=== PATIENT | male | born 1985 | race African-American/Black ===

== ENCOUNTER 2016-12-06 19:30 | Emergency (ER) | payer SELFPAY ==
[~2016-12-06] VITALS: Ht 180.3 cm; Wt 88.5 kg
[2016-12-06 19:46] VITALS: BP 128/77
--- NOTE | 2016-12-06 20:03 | PHYS DOC ---
Past Medical History Past Medical History: No Pertinent History Past Surgical History: No Surgical History Alcohol Use: Occasionally Drug Use: Cocaine, Marijuana Adult General Chief Complaint Chief Complaint: LOWEREXTREMITY INJURY HPI HPI Patient is a 31 year old male presents emergency department stating that he was seen at [facility] on November 24 for dislocated right ankle. He states that he was supposed to follow-up with orthopedic in which she states he has an appointment on Thursday. Patient does have a splint applied to the right ankle. He states today he went to get up and fell over his crutches. He states that he has having increased pain in the right ankle area. He states that he has lost his prescriptions for pain medication has been using cocaine to relieve the pain. He states last time he used was 2 days ago. Patient denies any numbness or tingling into the toes. He has good sensation peripheral pulses 2+. Review of Systems Review of Systems Constitutional: Denies fever or chills [] Eyes: Denies change in visual acuity, redness, or eye pain [] HENT: Denies nasal congestion or sore throat [] Respiratory: Denies cough or shortness of breath [] Cardiovascular: No additional information not addressed in HPI [] GI: Denies abdominal pain, nausea, vomiting, bloody stools or diarrhea [] : Denies dysuria or hematuria [] Musculoskeletal: Denies back pain. Complaint of right ankle pain and discomfort. Integument: Denies rash or skin lesions [] Neurologic: Denies headache, focal weakness or sensory changes [] Endocrine: Denies polyuria or polydipsia [] Current Medications Current Medications Current Medications Medications (Trade) Dose Ordered Sig/Miracle Start Time Stop Time Status Last Admin Dose Admin Acetaminophen/ Hydrocodone Bitart (Lortab 5/325) 2 tab 1X ONCE 12/06/16 21:15 12/06/16 21:16 Allergies Allergies Allergies Coded Allergies Type Severity Reaction Last Updated Verified No Known Drug Allergies 12/06/16 No Physical Exam Physical Exam Constitutional: Well developed, well nourished, no acute distress, non-toxic appearance. [] HENT: Normocephalic, atraumatic, bilateral external ears normal, oropharynx moist, no oral exudates, nose normal. [] Eyes: PERRLA, EOMI, conjunctiva normal, no discharge. [] Neck: Normal range of motion, no tenderness, supple, no stridor. [] Cardiovascular:Heart rate regular rhythm, no murmur [] Lungs & Thorax: Bilateral breath sounds clear to auscultation [] Abdomen: Bowel sounds normal, soft, no tenderness, no masses, no pulsatile masses. [] Skin: Warm, dry, no erythema, no rash. [] Back: No tenderness Extremities: Right lateral ankle tenderness, no cyanosis, no clubbing, ROM intact, no edema. Patient with the splint in place at the current time. Peripheral pulses 2+ cap refill brisk less than 2 seconds good sensation noted to the toes cap refill brisk less than 2 seconds. Neurologic: Alert and oriented X 3, normal motor function, normal sensory function, no focal deficits noted. [] Psychologic: Affect normal, judgement normal, mood normal. [] Current Patient Data Vital Signs Vital Signs Date Time Temp Pulse Resp B/P (MAP) Pulse Ox O2 Delivery O2 Flow Rate FiO2 12/06/16 19:46 97.0 95 16 97 Room Air 97.0 EKG EKG [] Radiology/Procedures Radiology/Procedures [] Course & Med Decision Making Course & Med Decision Making Pertinent Labs and Imaging studies reviewed. (See chart for details) X-ray was positive for trimalleolar fracture per Dr Christianson. Spoke with Dr Yarbrough regards to the patient's fracture and how he would like the patient to follow up with her admission or follow-up as an outpatient. He recommends that the patient follow-up in his office on Thursday he needs to call Thursday for the appointment. Also spoke with in regards to the patient isn't cocaine. He recommend informing the patient that if cocaine is noted in his system or methamphetamines as noted surgery will not be performed. Patient will be provided with hydrocodone to take at home for severe pain and discomfort. Recommended ibuprofen to help with the inflammation as well. Ice packs on 20 minutes off 20 minutes several times a day elevation as much as possible state off the ankle as much as possible use the crutches that you been provided. Patient will also be encouraged to leave the splint in place as it has the fractures stabilized. Patient was provided with this information and agrees with discharge instructions treatment regimens and follow-up recommendations. Signs and symptoms to return back to emergency department has been provided. Patients splint was re-enforced with arcadio wrap. [] Dragon Disclaimer Dragon Disclaimer This electronic medical record was generated, in whole or in part, using a voice recognition dictation system. Departure Departure Impression: Primary Impression: Trimalleolar fracture of right ankle Disposition: HOME, SELF-CARE Condition: STABLE Referrals: KONRAD YARBROUGH II, MD Patient Instructions: Ankle Fracture, [id number] Additional Instructions: Your x-rays show a trimalleolar fracture on the right ankle. Your splint has provided appropriate support for the fracture. We have reinforced it with Arcadio wrap's. Keep the splint in place do not remove the splint. Keep your right ankle elevated as much as possible. Use her crutches for ambulation. Do not place any weight on the right ankle. Ice packs on 20 minutes off 20 minutes several times a day. Ibuprofen 800 mg every 8 hours this will help with inflammation as well as pain. You have also been provided with hydrocodone for severe pain and discomfort. This medication will cause drowsiness do not take any be alert and oriented. Refrain from using cocaine, and methamphetamines otherwise your surgery will not be completed. Follow-up with orthopedic on Thursday. Call Thursday for your appointment. Return back to the emergency department for signs and symptoms of become worse. Scripts Hydrocodone/Apap 5-325 (NORCO 5-325 TABLET) 1 Each Tablet 1 TAB PO PRN Q6HRS Y for PAIN, #20 TAB 0 Refills Prov: STEPHEN GUILLEN APRN 12/06/16 STEPHEN GUILLEN APRN Dec 06, 2016 20:03
[2016-12-06] MEDS ORDERED: HYDR-971 PO (20:56)
[2016-12-06] MEDS ORDERED: HYDROcodone/APAP 5/325MG 1 TAB TABLET PO ONE (21:15)
--- NOTE | 2016-12-07 08:57 | RAD ---
Examination: 3 views of the right ankle History: History of right ankle pain, history of fracture Comparison: None available Findings: There is transverse fracture of the medial malleolus. There is mild displaced comminuted fracture of the lateral malleolus with the fracture line extending superior to the ankle joint. There is minimal displaced fracture of the posterior malleolus. Cast obscures fine bony detail. Impression: Trimalleolar fracture as described above.
== END 2016-12-06 21:08 | disposition home or self-care (01) ==
LOC: ER 19:30
DX: S82.851A Displaced trimalleolar fracture of right lower leg, initial encounter for closed fracture (principal); F12.10 Cannabis abuse, uncomplicated; F14.10 Cocaine abuse, uncomplicated; W01.0XXA Fall on same level from slipping, tripping and stumbling without subsequent striking against object, initial encounter; Y93.89 Activity, other specified; Y92.89 Other specified places as the place of occurrence of the external cause; Y99.8 Other external cause status
CPT/HCPCS: 73610; 99284